=== PATIENT | female | born 1975 | race Hispanic/Latino ===

== ENCOUNTER 2022-09-25 15:01 | Emergency (ER) | payer OTHER ==
[2022-09-25 15:47] LABS: #Eosinphils 0.3 10x3/uL (0.0-0.5); #Monocytes 0.3 10x3/uL (0.0-1.1); #Neutrophils 3.3 10x3/uL (1.5-8.4); %Basophils 0.4 % (0.0-2.0); %Eosinophils 5.2 % (0.0-6.0); %Lymphocytes 29.6 % (18.0-47.0); %Monocytes 6.1 % (0.0-10.0); %Neutrophils 58.5 % (40.0-75.0); Hematocrit 20.8 % (34.9-44.5); Hemoglobin 6.1 g/dL (12.0-15.5); Mean Corpuscular HGB CONC 29.3 g/dL (32.0-36.0); Mean Corpuscular Hemoglobin 23.6 pg (27.0-33.0); Mean Corpuscular Volume 80.6 fl (81.6-98.3); Mean Platelet Volume 9.4 fl (7.4-10.4); Platelet Count 556 10x3/uL (150-450); RBC Distribution Width 17.1 % (11.5-14.5); Red Blood Cell (RBC) Count 2.58 10x6/uL (3.90-5.03); White Blood Cell (WBC) Count 5.6 10x3/uL (3.5-10.5)
[2022-09-25 15:59] LABS: ALT (SGPT) 11 U/L (8-55); AST (SGOT) 16 U/L (5-34); Alkaline Phosphatase 69 U/L (40-110); Anion Gap 16 mmol/L (10-20); BUN (Urea Nitrogen) 11 mg/dL (7.0-18.7); Bilirubin, Total 0.2 mg/dL (0.2-1.2); Calc. Creatinine Clearance 0 mL/min (70-130); Calcium 8.8 mg/dL (7.8-10.44); Carbon Dioxide 20 mmol/L (22-29); Chloride 105 mmol/L (98-107); Estimated GFR 96; Globulin 3.1 g/dL (2.4-3.5); Glucose 131 mg/dL (70-105); Potassium 4.1 mmol/L (3.5-5.1); Protein, Total 7.1 g/dL (6.0-8.3); Sodium 137 mmol/L (136-145)
[2022-09-25] MEDS ORDERED: Iron, Sodium Ferric Gluconate 250 MG in Sodium Chloride 0.9% 250 ML 250 ML IVPB SCH (17:00)
[2022-09-25 18:49] LABS: Anisocytosis SLIGHT = 6-15 cells (100X) (0-5/hpf); Microcytosis SLIGHT = 6-15 cells (100X) (0-5/hpf)
[2022-09-25 18:50] LABS: Hypochromia SLIGHT = 6-15 cells (100X) (0-5/hpf); Platelet Adequacy Comment Appears Increased; Polychromasia SLIGHT = 2-3 cells (100X) (0-2/hpf)
== END 2022-09-25 19:33 | disposition home or self-care (01) ==
LOC: CSHERS 15:01
DX: D50.9 Iron deficiency anemia, unspecified (principal); N92.6 Irregular menstruation, unspecified
CPT/HCPCS: 36415; 80053; 82728; 83540; 85025; 86850; 86900; 86901; 96365; 96366; J2916; J7050

== ENCOUNTER 2024-12-25 06:06 | Day surgery (SDC) | payer OTHER ==
[2024-12-20 08:40] VITALS: BMI 29.4
[2024-12-25] MEDS ORDERED: Lidocaine 1% PF 5 ML VIAL ONE (07:09)
[2024-12-25] MEDS ORDERED: PROPOFOL 40 ML ONE (07:09)
== END 2024-12-25 09:10 | disposition home or self-care (01) ==
LOC: CSHSDC 06:06
PROVIDERS: ATTEND Surgery
PROC: 0DJD8ZZ Inspection of Lower Intestinal Tract, Via Natural or Artificial Opening Endoscopic (ICD-10-PCS; principal; 2024-12-25)
DX: D64.9 Anemia, unspecified (principal); K64.4 Residual hemorrhoidal skin tags; K64.0 First degree hemorrhoids; Z98.51 Tubal ligation status; Z79.899 Other long term (current) drug therapy
CPT/HCPCS: J2704